=== PATIENT | male | born 1940 | race Caucasian/White ===

== ENCOUNTER → 2018-06-01 | Outpatient (CLI) | payer MEDICARE, BC ==
[~2018-06-01] MED LIST: CARVEDILOL6.25 MG; DEPAKOTE125 MG PO; DIABETA 5MG TABL5 MG; LISINOPRIL5 MG
--- NOTE | 2018-06-01 11:13 | 2DMMODE ---
[place] [address] 2 D/M-MODE ECHOCARDIOGRAM Name: EDUARDO JAMES Room: [facility]#: [id number] Admission: 06/01/18 Attend Phys: Ousmane Baez, Discharge: Date of : 40 Date of Service: 06/01/18 1113 Report #: [id number] THIS REPORT FOR: //name// APPROVED REPORT Study performed: 06/01/2018 10:05:33 EXAM: Comprehensive 2D, Doppler, and color-flow Echocardiogram Patient Location: Out-Patient Status: routine BSA: 2.13 HR: 43 bpm BP: 122/82 mmHg Other Information Study Quality: Good Indications Congestive Heart Failure 2D Dimensions IVSd: 12.47 (7-11mm) LVOT Diam: 20.89 (18-24mm) LVDd: 69.86 mm PWd: 11.32 (7-11mm) Ascending Ao: 40.89 (22-36mm) LVDs: 57.30 (25-40mm) Aortic Root: 37.99 mm Volumes Left Atrial Volume (Systole) LA ESV Index: 39.80 mL/m2 Aortic Valve AoV Peak Felipe.: 1.06 m/s AO Peak Gr.: 4.50 mmHg LVOT Max P.89 mmHg AO Mean Gr.: 2.55 mmHg LVOT Mean P.39 mmHg LVOT Max V: 0.47 m/s AO V2 VTI: 19.38 cm LVOT Mean V: 0.28 m/s (VTI): 1.86 cm2 LVOT V1 VTI: 10.53 cm Mitral Valve MV Decel. Time: 278.71 ms MV PHT: 80.82 ms MVA (PHT): 2.72 cm2 [place] [address] 2 D/M-MODE ECHOCARDIOGRAM Name: EDUARDO JAMES Room: [facility]#: [id number] Admission: 06/01/18 Attend Phys: Ousmane Baez, Discharge: Date of : 40 Date of Service: 06/01/18 1113 Report #: [id number] TDI Medial E' Felipe.: 0.07 m/s Lateral E' Felipe.: 0.11 m/s Pulmonary Valve PV Peak Felipe.: 0.75 m/s PV Peak Gr.: 2.26 mmHg Tricuspid Valve RAP Estimate: 5.00 mmHg TR Peak Gr.: 19.50 mmHg RVSP: 24.50 mmHg PA Pressure: 24.50 mmHg Left Ventricle Left ventricle is mildly dilated. there is global hypokinesis noted. Mild concentric left ventricular hypertrophy. Left ventricular systolic function is moderately decreased. LVEF is 35-40%. The left ventricular diastolic function is normal. Right Ventricle The right ventricle is normal size. The right ventricular systolic function is normal. Atria Left atrium is moderately dilated. Right atrium is moderately dilated. Aortic Valve The aortic valve is normal in structure. Mild aortic regurgitation. There is no aortic valvular stenosis. Mitral Valve The mitral valve is normal in structure. Mild mitral regurgitation. No evidence of mitral valve stenosis. Tricuspid Valve The tricuspid valve is normal in structure. Mild tricuspid regurgitation. Pulmonic Valve The pulmonary valve is normal in structure. There is no pulmonic valvular regurgitation. Great Vessels The aortic root is normal in size. IVC is normal in size and collapses >50% [place] [address] 2 D/M-MODE ECHOCARDIOGRAM Name: EDUARDO JAMES Room: [facility]#: [id number] Admission: 06/01/18 Attend Phys: Ousmane Baez, Discharge: Date of : 40 Date of Service: 06/01/18 1113 Report #: [id number] Pericardium There is no pericardial effusion. <Conclusion> Left ventricle is mildly dilated. Mild concentric left ventricular hypertrophy. Left ventricular systolic function is moderately decreased. LVEF is 35-40%. The left ventricular diastolic function is normal. Left atrium is moderately dilated. Right atrium is moderately dilated. Mild aortic regurgitation. Mild mitral regurgitation. Mild tricuspid regurgitation. IVC is normal in size and collapses >50% with inspiration. <ELECTRONICALLY SIGNED> By: Ousmane Baez MD, FACC 06/01/18 111 12 12 Ousmane Baez MD, FACC /INF
== END ==
LOC: M.CRD 09:17
DX: I08.3 Combined rheumatic disorders of mitral, aortic and tricuspid valves (principal); I50.9 Heart failure, unspecified; I42.8 Other cardiomyopathies